=== PATIENT | male | born 1955 | race Caucasian/White ===

== ENCOUNTER 2021-03-30 12:50 | Inpatient (IN) | payer OTHER ==
[~2021-03-30] VITALS: Ht 167.6 cm; Wt 69.0 kg
[~2021-03-30 12:50] MED LIST: DUONEB 2.5-0.5M1 AMP INH; NEBULIZER UNIT NEB
[2021-03-30 14:14] LABS: BASOPHIL 0.3 % (0-2); EOSINOPHIL 2.6 % (0-7); HCT 41.2 % (42.0-52.0); HGB 14.5 g/dl (13.2-18.0); LYMPHOCYTE 4.9 % (15-48); MCH 40.4 pg (25.0-31.0); MCHC 35.2 g/dL (32.0-36.0); MCV 114.8 fL (78.0-100.0); MONOCYTE 9.4 % (0-12); MPV 8.3 fL (6.0-9.5); NEUTROPHIL 81.3 % (41-80); NRBC 0; PLT 162 K/uL (150-400); RBC 3.59 M/uL (4.70-6.00); RDW 14.4 % (11.5-14.0); WBC 15.2 K/uL (4.0-10.5)
[2021-03-30 14:25] LABS: INR 1.33 (0.9-1.2); PROTHROMBIN TIME 15.8 SECONDS (11.8-13.4)
[2021-03-30 14:26] LABS: PTT 37.2 SECONDS (24.4-34.7)
[2021-03-30 14:34] LABS: IRON % SATURATION 39.7 %SAT (20-50)
[2021-03-30 14:41] LABS: ALBUMIN 2.3 g/dL (3.4-5.0); BILIRUBIN - TOTAL 3.1 mg/dL (0.2-1.0); CREATININE 0.58 mg/dL (0.67-1.17); GLOBULIN (CALCULATION) 4.2 g/dL; POTASSIUM 3.3 mmol/L (3.5-5.1); TOTAL PROTEIN 6.5 g/dL (6.4-8.2)
[2021-03-30 15:07] LABS: BILIRUBIN NEGATIVE (NEGATIVE); BLOOD NEGATIVE Ery/uL (NEGATIVE); CLARITY CLEAR (CLEAR); COLOR YELLOW (YELLOW); GLUCOSE (U) NORMAL (NORMAL); LEUKOCYTES NEGATIVE Leu/uL (NEGATIVE); NITRITE NEGATIVE (NEGATIVE); PROTEIN NEGATIVE (NEGATIVE)
[2021-03-30 15:10] LABS: AMPHETAMINES NEGATIVE (NEGATIVE); BARBITURATES NEGATIVE (NEGATIVE); ECSTASY (MDMA) NEGATIVE (NEGATIVE); MARIJUANA (THC) NEGATIVE (NEGATIVE); METHADONE NEGATIVE (NEGATIVE); OPIATES NEGATIVE (NEGATIVE); OXYCODONE NEGATIVE (NEGATIVE)
[2021-03-31 05:57] LABS: BASOPHIL 0.3 % (0-2); EOSINOPHIL 0.3 % (0-7); HCT 34.8 % (42.0-52.0); HGB 11.7 g/dl (13.2-18.0); LYMPHOCYTE 11.2 % (15-48); MCH 40.2 pg (25.0-31.0); MCHC 33.6 g/dL (32.0-36.0); MONOCYTE 13.3 % (0-12); NEUTROPHIL 73.9 % (41-80); NRBC 0; PLT 159 K/uL (150-400); RBC 2.91 M/uL (4.70-6.00); RDW 14.2 % (11.5-14.0); WBC 11.6 K/uL (4.0-10.5)
[2021-03-31 06:00] LABS: MCV 119.6 fL (78.0-100.0)
[2021-03-31 06:12] LABS: ALBUMIN 1.6 g/dL (3.4-5.0); BILIRUBIN - TOTAL 2.5 mg/dL (0.2-1.0); BUN/CREAT RATIO (CALC) 25.9 RATIO; CREATININE 0.58 mg/dL (0.67-1.17); GLOBULIN (CALCULATION) 3.5 g/dL; MAGNESIUM 2.6 mg/dL (1.8-2.4); TOTAL PROTEIN 5.1 g/dL (6.4-8.2)
[2021-04-01 06:20] LABS: BASOPHIL 0.3 % (0-2); EOSINOPHIL 0.4 % (0-7); HCT 38.8 % (42.0-52.0); LYMPHOCYTE 12.6 % (15-48); MCH 39.2 pg (25.0-31.0); MCHC 33.5 g/dL (32.0-36.0); MCV 116.9 fL (78.0-100.0); MONOCYTE 9.6 % (0-12); MPV 8.4 fL (6.0-9.5); NEUTROPHIL 76.2 % (41-80); NRBC 0; PLT 158 K/uL (150-400); RBC 3.32 M/uL (4.70-6.00)
[2021-04-01 07:50] LABS: ALBUMIN 1.7 g/dL (3.4-5.0); BILIRUBIN - TOTAL 2.6 mg/dL (0.2-1.0); BUN/CREAT RATIO (CALC) 23.2 RATIO; CREATININE 0.56 mg/dL (0.67-1.17); MAGNESIUM 2.2 mg/dL (1.8-2.4); PHOSPHORUS 2.9 mg/dL (2.6-4.7); POTASSIUM 3.6 mmol/L (3.5-5.1); TOTAL PROTEIN 4.7 g/dL (6.4-8.2)
[2021-04-02 06:45] LABS: BASOPHIL 0.4 % (0-2); EOSINOPHIL 0.6 % (0-7); HCT 41.8 % (42.0-52.0); HGB 13.4 g/dl (13.2-18.0); LYMPHOCYTE 12.3 % (15-48); MCHC 32.1 g/dL (32.0-36.0); MCV 121.5 fL (78.0-100.0); MONOCYTE 9.6 % (0-12); MPV 8.7 fL (6.0-9.5); NEUTROPHIL 76.4 % (41-80); NRBC 0; PLT 164 K/uL (150-400); RBC 3.44 M/uL (4.70-6.00); RDW 13.8 % (11.5-14.0); WBC 12.5 K/uL (4.0-10.5)
[2021-04-02 07:05] LABS: ALBUMIN 1.6 g/dL (3.4-5.0); BILIRUBIN - TOTAL 2.2 mg/dL (0.2-1.0); CREATININE 0.5 mg/dL (0.67-1.17); GLOBULIN (CALCULATION) 3.7 g/dL; PHOSPHORUS 2.3 mg/dL (2.6-4.7); POTASSIUM 4.7 mmol/L (3.5-5.1); TOTAL PROTEIN 5.3 g/dL (6.4-8.2)
[2021-04-02] MEDS ORDERED: FOLIC ACID1 MG PO (09:59)
[2021-04-02] MEDS ORDERED: VITAMIN B-1100 MG PO (10:00)
[2021-04-02] MEDS ORDERED: DEMADEX20 MG PO (10:00)
[2021-04-02] MEDS ORDERED: K-DUR20 MEQ PO (10:01)
[2021-04-02] MEDS ORDERED: ALDACTONE25 MG PO (10:01)
[2021-04-03 06:58] LABS: BASOPHIL 0.3 % (0-2); EOSINOPHIL 0.5 % (0-7); HCT 38.4 % (42.0-52.0); HGB 12.7 g/dl (13.2-18.0); LYMPHOCYTE 13.8 % (15-48); MCH 39.1 pg (25.0-31.0); MCHC 33.1 g/dL (32.0-36.0); MCV 118.2 fL (78.0-100.0); MONOCYTE 7.7 % (0-12); MPV 8.7 fL (6.0-9.5); NEUTROPHIL 76.9 % (41-80); NRBC 0; PLT 167 K/uL (150-400); RBC 3.25 M/uL (4.70-6.00); RDW 13.7 % (11.5-14.0); WBC 14.7 K/uL (4.0-10.5)
[2021-04-03 07:18] LABS: INR 1.24 (0.9-1.2); PROTHROMBIN TIME 14.9 SECONDS (11.8-13.4); PTT 33.7 SECONDS (24.4-34.7)
[2021-04-03 07:39] LABS: ALBUMIN 1.7 g/dL (3.4-5.0); BILIRUBIN - TOTAL 1.5 mg/dL (0.2-1.0); CREATININE 0.63 mg/dL (0.67-1.17); GLOBULIN (CALCULATION) 3.3 g/dL; MAGNESIUM 1.8 mg/dL (1.8-2.4); PHOSPHORUS 3.2 mg/dL (2.6-4.7); POTASSIUM 4.1 mmol/L (3.5-5.1)
--- NOTE | 2021-04-03 12:02 | NUR ---
04/03/21 Mr. Hampton lives at home with his spouse. He has a hospital bed, rw, and 3in1. Ms. Hampton chose [facility]; affliation understood. A referral was made to [facility] via [facility].
[2021-04-04 06:13] LABS: BASOPHIL 0.3 % (0-2); EOSINOPHIL 0.2 % (0-7); HGB 12.4 g/dl (13.2-18.0); LYMPHOCYTE 11.7 % (15-48); MCH 38.3 pg (25.0-31.0); MCHC 32.6 g/dL (32.0-36.0); MCV 117.3 fL (78.0-100.0); MONOCYTE 6.7 % (0-12); MPV 8.9 fL (6.0-9.5); NEUTROPHIL 80.4 % (41-80); NRBC 0; PLT 175 K/uL (150-400); RBC 3.24 M/uL (4.70-6.00); RDW 13.9 % (11.5-14.0); WBC 15.9 K/uL (4.0-10.5)
[2021-04-04 06:35] LABS: ALBUMIN 1.7 g/dL (3.4-5.0); BILIRUBIN - TOTAL 1.4 mg/dL (0.2-1.0); BUN/CREAT RATIO (CALC) 20.3 RATIO; CREATININE 0.69 mg/dL (0.67-1.17); GLOBULIN (CALCULATION) 3.8 g/dL; MAGNESIUM 1.7 mg/dL (1.8-2.4); PHOSPHORUS 4.1 mg/dL (2.6-4.7); POTASSIUM 3.1 mmol/L (3.5-5.1); TOTAL PROTEIN 5.5 g/dL (6.4-8.2)
[2021-04-05 04:05] LABS: BASOPHIL 0.3 % (0-2); EOSINOPHIL 0.3 % (0-7); HCT 36.4 % (42.0-52.0); LYMPHOCYTE 9.7 % (15-48); MCH 38.6 pg (25.0-31.0); MONOCYTE 6.9 % (0-12); MPV 9.1 fL (6.0-9.5); NEUTROPHIL 81.4 % (41-80); NRBC 0; PLT 190 K/uL (150-400); RBC 3.11 M/uL (4.70-6.00); RDW 13.7 % (11.5-14.0); WBC 15.1 K/uL (4.0-10.5)
[2021-04-05 04:33] LABS: BUN/CREAT RATIO (CALC) 18.8 RATIO; CREATININE 0.85 mg/dL (0.67-1.17); MAGNESIUM 1.8 mg/dL (1.8-2.4); POTASSIUM 3.5 mmol/L (3.5-5.1)
[2021-04-05] MEDS ORDERED: MEGACE ORA6 TSP/1 OZ PO (12:02)
[2021-04-05] MEDS ORDERED: LOPRESSOR25 MG PO (12:02)
[2021-04-05] MEDS ORDERED: NEBULIZER UNIT NEB (15:14)
== END 2021-04-05 15:00 | disposition home health service (06) | DRG 871 ==
LOC: FER 12:50 → FICU 18:24 → FTCU 04-03 12:45
PROVIDERS: Emergency Medicine; Internal Medicine; Nurse Practitioner; ADMIT Internal Medicine
DX: A41.9 Sepsis, unspecified organism (principal); G93.41 Metabolic encephalopathy; E43 Unspecified severe protein-calorie malnutrition; J44.0 Chronic obstructive pulmonary disease with (acute) lower respiratory infection; G45.9 Transient cerebral ischemic attack, unspecified; F10.231 Alcohol dependence with withdrawal delirium; E87.2 Acidosis; R65.20 Severe sepsis without septic shock; J20.9 Acute bronchitis, unspecified; Z20.822 Contact with and (suspected) exposure to COVID-19; F04 Amnestic disorder due to known physiological condition; R59.0 Localized enlarged lymph nodes; K70.31 Alcoholic cirrhosis of liver with ascites; I50.9 Heart failure, unspecified; F17.210 Nicotine dependence, cigarettes, uncomplicated; Z79.899 Other long term (current) drug therapy; Z68.22 Body mass index [BMI] 22.0-22.9, adult
CPT/HCPCS: 36415; 70450; 71045; 80048; 80053; 80305; 81003; 82140; 82550; 82607; 83540; 83550; 83605; 83615; 83690; 83735; 83880; 84100; 84145; 84443; 84484; 85025; 85610; 85730; 87040; 93005; 94010; 94640; 94667; 94668; 97110; 97116; 97161; 97166; 97530-GP; 97535; J0456; J1650; J1940; J1953; J2060; J2543; J3360; J3411; J3420; J3475; J3480; J7030; J7040; J7042; J7050; J7120; Q9967; U0002

== ENCOUNTER 2022-03-16 08:22 | Emergency (ER) | payer OTHER ==
[~2022-03-16 08:22] MED LIST changes: +ALDACTONE25 MG PO; +DEMADEX20 MG PO; +FOLIC ACID1 MG PO; +K-DUR20 MEQ PO; +LOPRESSOR25 MG PO; +MEGACE ORA6 TSP/1 OZ PO; +VITAMIN B-1100 MG PO
[2022-03-16 08:52] LABS: BASOPHIL 0.7 % (0-2); EOSINOPHIL 0.8 % (0-7); HCT 43.4 % (42.0-52.0); HGB 14.5 g/dl (13.2-18.0); LYMPHOCYTE 21.7 % (15-48); MCH 34.5 pg (25.0-31.0); MCHC 33.4 g/dL (32.0-36.0); MCV 103.3 fL (78.0-100.0); MONOCYTE 11.4 % (0-12); MPV 8.3 fL (6.0-9.5); NEUTROPHIL 64.4 % (41-80); NRBC 0; PLT 307 K/uL (150-400); RDW 13.6 % (11.5-14.0)
[2022-03-16 09:42] LABS: ALBUMIN 3.6 g/dL (3.4-5.0); BILIRUBIN - TOTAL 0.9 mg/dL (0.2-1.0); BUN/CREAT RATIO (CALC) 14.1 RATIO; CREATININE 0.85 mg/dL (0.67-1.17); GLOBULIN (CALCULATION) 4.2 g/dL; POTASSIUM 4.3 mmol/L (3.5-5.1); TOTAL PROTEIN 7.8 g/dL (6.4-8.2)
[2022-03-16] MEDS ORDERED: PREDNISONE 20MG20 MG PO (10:25)
== END 2022-03-16 10:40 | disposition home or self-care (01) ==
LOC: FER 08:22
PROVIDERS: Emergency Medicine
DX: J44.1 Chronic obstructive pulmonary disease with (acute) exacerbation (principal); I11.0 Hypertensive heart disease with heart failure; I50.9 Heart failure, unspecified; F17.210 Nicotine dependence, cigarettes, uncomplicated
CPT/HCPCS: 36415; 71045; 80053; 84484; 85025; 93005; 94640; J2930

== ENCOUNTER → 2022-03-27 | Day surgery (SDC) | payer OTHER ==
[~2022-03-27] VITALS: Ht 167.6 cm; Wt 76.2 kg
[~2022-03-27] MED LIST changes: +ASPIRIN EC81 MG PO; +CARVEDILOL3.125 MG PO; +PREDNISONE 20MG20 MG PO; +SPIRIVA RESPIMAT4 GM INH
[2022-03-27 07:53] LABS: HCT 40.6 % (42.0-52.0); HGB 13.3 g/dl (13.2-18.0); MCHC 32.8 g/dL (32.0-36.0); MCV 103.8 fL (78.0-100.0); MPV 8.4 fL (6.0-9.5); RBC 3.91 M/uL (4.70-6.00); RDW 14.2 % (11.5-14.0); WBC 9.5 K/uL (4.0-10.5)
[2022-03-27 08:04] LABS: INR 0.97 (0.9-1.2); PROTHROMBIN TIME 12.6 SECONDS (11.9-13.9); PTT 28.1 SECONDS (24.9-34.6)
[2022-03-27 11:16] LABS: CREATININE 0.88 mg/dL (0.67-1.17); POTASSIUM 4.5 mmol/L (3.5-5.1); TOTAL PROTEIN 6.5 g/dL (6.4-8.2)
[2022-03-27 11:17] LABS: ALBUMIN 3.1 g/dL (3.4-5.0); BILIRUBIN - TOTAL 1.2 mg/dL (0.2-1.0); GLOBULIN (CALCULATION) 3.4 g/dL
== END | disposition home or self-care (01) ==
LOC: FAS 06:52
PROVIDERS: Anesthesiology; Student in an Organized Health Care Education/Training Program
DX: Z12.11 Encounter for screening for malignant neoplasm of colon (principal); D12.3 Benign neoplasm of transverse colon; D12.5 Benign neoplasm of sigmoid colon; D12.8 Benign neoplasm of rectum; K64.8 Other hemorrhoids; K57.30 Diverticulosis of large intestine without perforation or abscess without bleeding; C79.9 Secondary malignant neoplasm of unspecified site; K70.30 Alcoholic cirrhosis of liver without ascites; I50.9 Heart failure, unspecified; I25.10 Atherosclerotic heart disease of native coronary artery without angina pectoris; I65.29 Occlusion and stenosis of unspecified carotid artery; I35.0 Nonrheumatic aortic (valve) stenosis; J44.9 Chronic obstructive pulmonary disease, unspecified; K70.10 Alcoholic hepatitis without ascites; Z79.82 Long term (current) use of aspirin; Z80.0 Family history of malignant neoplasm of digestive organs; Z72.0 Tobacco use
CPT/HCPCS: 36415; 80053; 82140; 85610; 85730; J7120